=== PATIENT | female | born 1995 | race African-American/Black ===

== ENCOUNTER 2024-10-10 00:57 | Emergency (ER) | payer OTHER ==
[~2024-10-10] VITALS: Ht 172.7 cm; Wt 90.7 kg
[2024-10-10 01:24] VITALS: BP 122/82; O2SAT 100
[2024-10-10] MEDS ORDERED: hydrOXYzine PAMOATE 50 MG CAPSULE PO STA (02:08)
[2024-10-10] MEDS ORDERED: hydrOXYzine PAMOATE 50 MG CAPSULE PO ONE (02:37)
[2024-10-10] MEDS ORDERED: HYDROXYZINE PAM50 MG PO (04:17)
== END 2024-10-10 04:36 ==
LOC: ER 01:19
DX: R00.2 Palpitations (principal)